=== PATIENT | female | born 1950 | race Caucasian/White ===

== ENCOUNTER → 2020-11-13 | Outpatient (CLI) | payer MEDICARE, OTHER | LOC: RAD 09:53 | DX: M81.8 Other osteoporosis without current pathological fracture (principal) | CPT/HCPCS: 77080 ==

== ENCOUNTER 2021-07-26 09:22 | Emergency (ER) | payer MEDICARE, OTHER ==
[~2021-07-26] VITALS: Ht 165.1 cm; Wt 64.4 kg
[2021-07-26] MEDS ORDERED: ROSADAN 0.75%1 EAC1 (10:09)
[2021-07-26] MEDS ORDERED: AMLODIPINE BESY10 MG PO (10:09)
[2021-07-26] MEDS ORDERED: FLONASE ALLERG9.9 ML INH (10:09)
[2021-07-26] MEDS ORDERED: ZYRTEC10 M3 (10:09)
[2021-07-26] MEDS ORDERED: CLEOCIN40 GM TOP (10:09)
[2021-07-26] MEDS ORDERED: LOSARTAN-HCTZ1 EAC1 (10:09)
[2021-07-26] MEDS ORDERED: NYSTATIN-TRIAMC15 G1 TOP (10:09)
[2021-07-26] MEDS ORDERED: NEXIUM20 MG PO (10:09)
[2021-07-26] MEDS ORDERED: CALCIUM-MAGNES1 EAC6 (10:09)
[2021-07-26] MEDS ORDERED: ASPIRIN EC81 MG PO (10:09)
[2021-07-26] MEDS ORDERED: CITALOPRAM HBR30 MG (10:09)
[2021-07-26] MEDS ORDERED: CENTRUM ADULTS1 EACH PO (10:09)
[2021-07-26] MEDS ORDERED: CRESTOR10 MG PO (10:09)
== END 2021-07-26 11:40 | disposition home or self-care (01) ==
LOC: FSED 10:16
DX: S52.592A Other fractures of lower end of left radius, initial encounter for closed fracture (principal); W18.30XA Fall on same level, unspecified, initial encounter; Y93.01 Activity, walking, marching and hiking; Y92.89 Other specified places as the place of occurrence of the external cause; I10 Essential (primary) hypertension; E78.5 Hyperlipidemia, unspecified; Z85.3 Personal history of malignant neoplasm of breast
CPT/HCPCS: 99284